=== PATIENT | male | born 1945 | race Caucasian/White ===

== ENCOUNTER 2021-11-29 07:00 | Outpatient (NON) | payer BC, SELFPAY | END 2021-12-06 14:42 | disposition home or self-care (01) | PROVIDERS: Visit Provider Surgery Plastic and Reconstructive Surgery | DX: C44.92 Squamous cell carcinoma of skin, unspecified (principal) | CPT/HCPCS: 88305; 88331 ==

== ENCOUNTER 2022-04-18 12:11 | Outpatient (NON) | payer MEDICARE, OTHER, SELFPAY | END 2022-04-18 12:12 | disposition home or self-care (01) | LOC: ANHLAB 12:11 | PROVIDERS: Visit Provider Nurse Practitioner | DX: C44.212 Basal cell carcinoma of skin of right ear and external auricular canal (principal); C44.622 Squamous cell carcinoma of skin of right upper limb, including shoulder | CPT/HCPCS: 88305; 88331 ==